=== PATIENT | female | born 1940 | race Caucasian/White ===

== ENCOUNTER 2020-10-31 10:27 | Outpatient (RCR) | payer MEDICARE | END 2020-11-04 | LOC: WCC 10:27 | PROVIDERS: ATTEND Family Medicine Adult Medicine | DX: E11.22 Type 2 diabetes mellitus with diabetic chronic kidney disease (principal); N18.30 Chronic kidney disease, stage 3 unspecified; K62.5 Hemorrhage of anus and rectum; L59.9 Disorder of the skin and subcutaneous tissue related to radiation, unspecified; D35.2 Benign neoplasm of pituitary gland; D50.8 Other iron deficiency anemias; G62.0 Drug-induced polyneuropathy; M10.9 Gout, unspecified; E86.0 Dehydration; K51.20 Ulcerative (chronic) proctitis without complications; K52.9 Noninfective gastroenteritis and colitis, unspecified; I10 Essential (primary) hypertension; I71.4 Abdominal aortic aneurysm, without rupture; E66.3 Overweight; E78.5 Hyperlipidemia, unspecified; F33.1 Major depressive disorder, recurrent, moderate; G31.9 Degenerative disease of nervous system, unspecified; G47.33 Obstructive sleep apnea (adult) (pediatric); I13.0 Hypertensive heart and chronic kidney disease with heart failure and stage 1 through stage 4 chronic kidney disease, or unspecified chronic kidney disease; I25.10 Atherosclerotic heart disease of native coronary artery without angina pectoris; Z01.810 Encounter for preprocedural cardiovascular examination; Z01.811 Encounter for preprocedural respiratory examination; Z51.0 Encounter for antineoplastic radiation therapy ==